=== PATIENT | female | born 1940 | race Caucasian/White ===

== ENCOUNTER → 2017-08-10 | Day surgery (SDC) | payer MEDICARE ==
[~2017-08-10] MED LIST: AMLO5TAB2 PO; CHLORHEXIDINE GLUCONATE 2 % 1 PACK (2 CLOTHS) TOPICAL PRN; DEXTROSE 5% IN WATE 1000ML INJ 1,000 ML IV SCH; LACTATED RINGER'S 1000 ML IV PRN; METOPROLOL TARTRATE 25 MG TAB PO PRN; NATU32.5 PO; POVIDONE IODINE 5% (ANTISEPSIS KIT) 4 APPLICATIONS EACH NARE PRN; SODIUM CHLORID 0.9% 500 ML IV PRN
[2017-08-10 06:55] VITALS: BP 160/80; PULSE 65; RESP 18; TEMP 98.1; O2SAT 90
--- NOTE | 2017-08-10 08:13 | GIPROC ---
[facility] [address] [facility]. [facility], [address] COLONOSCOPY PROCEDURE REPORT EXAM DATE: 08/10/2017 PATIENT NAME: Dominique Maloney MR #: [id number] BIRTHDATE: 1940 ENDOSCOPIST: Aviva Fuentes MD ORDER #: [id number] TRUCKING SUPERVISOR: Nilsa Barrios and Maile Mondragon STATUS: outpatient INDICATIONS: The patient is a 76 yr old female here for a colonoscopy due to Screening, Family history Colon Cancer. PROCEDURE PERFORMED: Total colonoscopy with polypectomy with biopsy forceps MEDICATIONS: See Anesthesia Record ESTIMATED BLOOD LOSS: None CONSENT: The patient understands the risks and benefits of the procedure and understands that these risks include, but are not limited to: sedation, allergic reaction, infection, perforation and/or bleeding. Alternative means of evaluation and treatment include, among others: physical exam, x-rays, and/or surgical intervention. The patient elects to proceed with this endoscopic procedure. DESCRIPTION OF PROCEDURE: checked for proper function. Hand hygiene and appropriate measures for infection prevention was taken. After the risks, benefits and alternatives of the procedure were thoroughly explained, Informed consent was verified, confirmed and timeout was successfully executed by the treatment team. A digital exam was performed. The endoscope was introduced through the anus and advanced to the cecum, which was identified by the appendiceal orifice, tri-radiate valve, and ileocecal valve. The prep quality was good. The instrument was then slowly withdrawn as the colon was fully examined. Other than mild pancolonic diverticulosis, there were no mucosal abnormalities noted with the cecum, or ascending colon. In the transverse colon a 2-3 mm polyp was removed with the biopsy forceps. There were no further polyps or masses in the descending colon, sigmoid, or rectum. The scope was then completely withdrawn from the patient and the procedure terminated. ADVERSE EVENTS: There were no complications. WITHDRAWL TIME: 6 minutes DEGREE OF DIFFICULTY: IMPRESSIONS: Normal Colon RECOMMENDATIONS: Home PATIENT CONDITION: Stable DISPOSITION: Home RECALL: 5 years Aviva Fuentes MD eSigned: Aviva Fuentes MD 08/10/2017 8:12 AM cc: Dr. Hines PATIENT NAME: Dominique Maloney MR#: [id number]
[2017-08-10 08:59] VITALS: BP 187/80; PULSE 57; RESP 18; TEMP 98.2; O2SAT 98
--- NOTE | 2017-08-10 09:17 | EKG ---
Date Performed: 08/10/2017 Time Performed: 06:43:16 PTAGE: 76 years EKG: SINUS BRADYCARDIA INCOMPLETE RIGHT BUNDLE BRANCH BLOCK POSSIBLE LATERAL MYOCARDIAL INFARCTI ON , OF INDETERMINATE AGE Nonspecific T wave changes ABNORMAL ECG NO PREVIOUS TRACING DOCTOR: Les Tovar Interpretating Date/Time 08/10/2017 09:17:07
== END | disposition home or self-care (01) ==
LOC: HSDC 05:55
PROVIDERS: ATTEND Colon & Rectal Surgery
DX: D12.3 Benign neoplasm of transverse colon (principal); K57.90 Diverticulosis of intestine, part unspecified, without perforation or abscess without bleeding; I10 Essential (primary) hypertension; Z80.0 Family history of malignant neoplasm of digestive organs
CPT/HCPCS: 00810; 45380; 88305; 93005; J7120

== ENCOUNTER 2018-01-16 10:51 | Inpatient (IN) | payer MEDICARE ==
[~2018-01-16] VITALS: Ht 154.9 cm; Wt 49.0 kg
[~2018-01-16 10:51] MED LIST changes: -CHLORHEXIDINE GLUCONATE 2 % 1 PACK (2 CLOTHS) TOPICAL PRN; -DEXTROSE 5% IN WATE 1000ML INJ 1,000 ML IV SCH; -LACTATED RINGER'S 1000 ML IV PRN; -METOPROLOL TARTRATE 25 MG TAB PO PRN; -POVIDONE IODINE 5% (ANTISEPSIS KIT) 4 APPLICATIONS EACH NARE PRN; -SODIUM CHLORID 0.9% 500 ML IV PRN
[2018-01-16 10:54] VITALS: BP 211/95; PULSE 69; RESP 18; TEMP 99.2; O2SAT 97
[2018-01-16] MEDS ORDERED: CLON0.5T PO (11:12)
[2018-01-16 11:36] VITALS: BP 213/104; PULSE 68; RESP 18; O2SAT 99
[2018-01-16 11:37] VITALS: BP 190/91; PULSE 60; RESP 15; O2SAT 99
--- NOTE | 2018-01-16 11:44 | PD ---
HPI Chief Complaint: Psychiatric Symptoms Time Seen by Provider: 11:00 Travel History International Travel<30 days: No Contact w/Intl Traveler<30days: No Traveled to known affect area: No History of Present Illness HPI 77-year-old female presents to the emergency department accompanied by her for psychological evaluation, and was apparently sent by her primary care provider. She has history of bipolar disorder and has been fighting episodes of whitney and depression for the past 10 years. She has been in her depressed state since October. She saw her psychiatrist, Dr. Ontiveros, on Tuesday and had follow-up with her primary care provider, Dr. Hines, today and was apparently told to report to the ER for psychological evaluation and recommendation of medications. She denies suicidal or homicidal ideations. Denies auditory or visual hallucinations. Denies illicit drug use. Reports social alcohol use. Denies tobacco use. Patient has no emergent medical complaints. Denies chest pain, shortness of breath, abdominal pain, nausea, vomiting, recent illnesses. The patient has been states she stopped taking her medications a few days ago, because she feels that her blood pressure medication and her thyroid medication is overdosing and poisoning her. Apparently she had an episode approximately 10 years ago where her thyroid medication was prescribed incorrectly and she says she was almost killed by that. She has not taken her blood pressure medication this morning. She takes amlodipine 5 mg. Onset and duration chronic. Symptoms are moderate to severe in severity. No known aggravating or relieving factors. Primary care provider is Dr. Hines. Psychiatrist is Dr. Ontiveros. No known allergies. History of hypertension hypothyroidism. Has no other medical complaints. No other modifying factors or associated signs and symptoms. PFSH Past Medical History Arthritis: Yes Bipolar Disorder: Yes Anxiety: Yes Depression: Yes (MANIC ) Cancer: No Cardiovascular Problems: No Diabetes: No Diminished Hearing: No Endocrine: No Genitourinary: No Hepatitis: No Hiatal Hernia: No Hypertension: Yes Immune Disorder: No Medical other: No Musculoskeletal: Yes (ARTHRITIS) Neurologic: No Psychiatric: No Reproductive: No Respiratory: No Immunizations Current: Yes Thyroid Disease: Yes Tetanus Vaccination: Unknown Influenza Vaccination: No ?: Not Past Surgical History AICD: No Appendectomy: Yes Eye Surgery: Yes (L CATARACT) Gynecologic Surgery: Yes (HYSTERECTOMY) Hysterectomy: Yes Joint Replacement: No Pacemaker: No Social History Alcohol Use: Yes Tobacco Use: Yes (QUIT ) Substance Use: No Allergies-Medications (Allergen,Severity, Reaction): Coded Allergies: No Known Allergies (Unverified , 01/16/18) Reported Meds & Prescriptions Reported Meds & Active Scripts Active Reported Clonazepam 0.5 Mg Tab 0.5 Mg PO BID Nature-Throid (Thyroid) 32.5 Mg Tab Unknown Dose PO DAILY Amlodipine (Amlodipine Besylate) 5 Mg Tab 5 Mg PO HS Review of Systems Except as stated in HPI: all other systems reviewed are Neg Physical Exam Narrative GENERAL: Well-nourished, well-developed feet patient, in no acute distress SKIN: Warm and dry. HEAD: Atraumatic. Normocephalic. EYES: Pupils equal and round. ENT: Mucosa pink and moist. NECK: Supple. Trachea midline. CARDIOVASCULAR: Regular rate and rhythm. No murmur appreciated. RESPIRATORY: No accessory muscle use. Clear to auscultation. Breath sounds equal bilaterally. GASTROINTESTINAL: Abdomen soft, non-tender, nondistended. Hepatic and splenic margins not palpable. Bowel sounds are active 4 quadrants. MUSCULOSKELETAL: No obvious deformities. No clubbing. No cyanosis. No edema. NEUROLOGICAL: Awake and alert. Oriented 3. No obvious cranial nerve deficits. Motor grossly within normal limits. Normal speech. Moves all extremities. 5/5 strength to all extremities. PSYCHIATRIC: No delusional thought processes. No hallucinations. Data Data Last Documented VS Vital Signs Date Time Temp Pulse Resp B/P (MAP) Pulse Ox O2 Delivery O2 Flow Rate FiO2 01/16/18 11:37 60 15 190/91 (124) 99 01/16/18 11:36 Room Air 01/16/18 10:54 99.2 Orders Orders Complete Blood Count With Diff (01/16/18 11:02) Comprehensive Metabolic Panel (01/16/18 11:02) Thyroid Stimulating Hormone (01/16/18 11:02) Urinalysis - C+S If Indicated (01/16/18 11:02) Psych Screen (01/16/18 11:02) Drug Screen, Random Urine (01/16/18 11:02) Alcohol (Ethanol) (01/16/18 11:02) Salicylates (Aspirin) (01/16/18 11:02) Tylenol (Acetaminophen) (01/16/18 11:02) Amlodipine (Norvasc) (01/16/18 11:45) [facility] Medical Decision Making Medical Screen Exam Complete: Yes Emergency Medical Condition: Yes Medical Record Reviewed: Yes Differential Diagnosis Encounter for psychological evaluation, bipolar disorder, depression Narrative Course Patient presents voluntarily. Physical examination and vital signs are essentially unremarkable. Patient has no medical complaints to report. Psych screen has been ordered. If the laboratory results are unremarkable, the patient will be medically cleared for psychiatric evaluation and disposition. Patient's blood pressure is elevated in the ER. Her and her both states she has "white coat syndrome." She has not taken her amlodipine this morning. She is asymptomatic. Amlodipine 5 mg ordered. Diagnosis Primary Impression: Encounter for psychological evaluation Condition: Stable Tiara Begum January 16, 2018 11:44
[2018-01-16] MEDS ORDERED: amLODIPine BESYLATE 5 MG TAB PO ONE (11:45)
[2018-01-16 12:21] LABS: BASOPHIL % 0.5 % (0.0-2.0); EOSINOPHIL # 0.1 TH/MM3 (0-0.4); EOSINOPHIL % 1.8 % (0.0-4.0); HEMATOCRIT 40.3 % (35.0-46.0); HEMOGLOBIN 14.1 GM/DL (11.6-15.3); LYMPH % 39.1 % (9.0-44.0); LYMPHOCYTE # 2.6 TH/MM3 (1.0-4.8); MEAN CELL VOLUME 91.2 FL (80.0-100.0); MEAN CORPUSCULAR HEMOGLOBIN 31.8 PG (27.0-34.0); MEAN CORPUSCULAR HGB CONC 34.9 % (32.0-36.0); MEAN PLATELET VOLUME 7.9 FL (7.0-11.0); MONO % 12.8 % (0.0-8.0); MONOCYTE # 0.8 TH/MM3 (0-0.9); NEUT % 45.8 % (16.0-70.0); PLATELET COUNT 321 TH/MM3 (150-450); RED BLOOD COUNT 4.42 MIL/MM3 (4.00-5.30); RED CELL DISTRIBUTION WIDTH 12.8 % (11.6-17.2); WHITE BLOOD COUNT 6.6 TH/MM3 (4.0-11.0)
[2018-01-16 12:31] LABS: BILIRUBIN, URINE NEG (NEG); BLOOD, URINE NEG (NEG); GLUCOSE,URINE NEG (NEG); KETONE, URINE NEG (NEG); MUCUS URINE FEW /lpf (OCC); NITRITE,URINE NEG (NEG); SQUAMOUS EPITHELIAL CELL URINE 2 /hpf (0-5); URINE COLOR LIGHT-YELLOW (YELLW/STRAW); URINE LEUKOCYTE ESTERASE NEG (NEG)
[2018-01-16 13:08] LABS: ALBUMIN 3.9 GM/DL (3.4-5.0); ALKALINE PHOSPHATASE 72 U/L (45-117); BLOOD UREA NITROGEN 14 MG/DL (7-18); CALCIUM 8.9 MG/DL (8.5-10.1); CREATININE 0.95 MG/DL (0.50-1.00); GLOMERULAR FILTRATION RATE 57 ML/MIN (>89); GLUCOSE,RANDOM 78 MG/DL (74-106); TOTAL PROTEIN 7.1 GM/DL (6.4-8.2)
[2018-01-16 13:09] LABS: ACETAMINOPHEN LESS THAN 2.0 MCG/ML (10.0-30.0); ALT (GPT) 23 U/L (10-53); AST (GOT) 24 U/L (15-37); BICARBONATE 25.6 MEQ/L (21.0-32.0); CHLORIDE 107 MEQ/L (98-107); SODIUM (NA) 140 MEQ/L (136-145); TOTAL BILIRUBIN ADULT 0.7 MG/DL (0.2-1.0)
[2018-01-16] MEDS ORDERED: MAGNESIUM HYDROXIDE SUSP 30 ML CUP PO PRN (16:00)
[2018-01-16] MEDS ORDERED: ACETAMINOPHEN 325 MG TAB PO PRN (16:00)
[2018-01-16] MEDS ORDERED: LORazepam 2 MG/ML VIAL IM PRN (16:00)
[2018-01-16] MEDS ORDERED: ALUMINUM/MAGNESIUM/SIMETH 30 ML CUP PO PRN (16:00)
[2018-01-16] MEDS ORDERED: LORazepam 0.5 MG TAB PO PRN (16:00)
--- NOTE | 2018-01-16 16:13 | PD ---
History of Present Illness Chief Complaint: Psychiatric Symptoms Time Seen by Provider: 15:00 Travel History International Travel<30 Days: No Contact w/Intl Traveler<30days: No Known affected area: No Legal Status Legal Status: Voluntary History of Present Illness: This is a 77-year-old , female who reports to the emergency department voluntarily. Her describes an ongoing, progressively worsening manic episode that started on approximately October 21 of this year. She is unknown to this facility previously for mental health issues. Reviewed electronic medical record, labs, discuss case with staff. Patient was evaluated in her room in the ED main. Patient is awake, alert, and oriented 4. Her speech is rapid, pressured, and at times disorganized. Her mood is anxious and her affect borders on irritable at times. She is fixated on an event that occurred many years ago where she was accidentally overdosed on her thyroid medication. Her reports that she has been rearranging the furniture and cleaning all night. She states that she is down to eating 1 meal a day. When asked if she had previously been inpatient she initially stated no but then later made the comment, "I have not been to the [facility] in years since leaving [place]". She denies suicidal ideation, homicidal ideation, auditory or visual hallucinations. However, when asked if she did ever previously tried to commit suicide she again initially stated no but later, " the only time I tried to kill myself was when I was on the horses urine pill". She goes on to say that this was hormonal replacement, obviously talking about Premarin. Her advises that she was to see a psychiatrist on Tuesday however, when they got to the appointment they were told that they would not be seeing her as they did not take her insurance. Today she followed up with her PCP Dr. Cain who upon assessing her advised the to bring her to this facility for stabilization. PFSH Past Medical History Arthritis: Yes Bipolar Disorder: Yes Anxiety: Yes Depression: Yes (MANIC ) Cancer: No Cardiovascular Problems: No Diabetes: No Diminished Hearing: No Endocrine: No Genitourinary: No Hepatitis: No Hiatal Hernia: No Hypertension: Yes Immune Disorder: No Medical other: No Musculoskeletal: Yes (ARTHRITIS) Neurologic: No Psychiatric: No Reproductive: No Respiratory: No Immunizations Current: Yes Thyroid Disease: Yes Tetanus Vaccination: Unknown Influenza Vaccination: No ?: Not Past Surgical History AICD: No Appendectomy: Yes Eye Surgery: Yes (L CATARACT) Gynecologic Surgery: Yes (HYSTERECTOMY) Hysterectomy: Yes Joint Replacement: No Pacemaker: No Psychiatric History Psychiatric History Initially denies, but later makes incriminating statement leading me to believe she may have been inpatient at sometime in the past. History of Inpatient Treatment: No (Unsure) Guns or firearms in home: No Social History Hx Alcohol Use: Yes Hx Tobacco Use: Yes (QUIT ) Hx Substance Use: No Allergies-Medications (Allergen,Severity, Reaction): Coded Allergies: No Known Allergies (Unverified , 01/16/18) Reported Meds & Prescriptions Reported Meds & Active Scripts Active Reported Clonazepam 0.5 Mg Tab 0.5 Mg PO BID Nature-Throid (Thyroid) 32.5 Mg Tab Unknown Dose PO DAILY Amlodipine (Amlodipine Besylate) 5 Mg Tab 5 Mg PO HS Mental Status Examination Appearance: Appropriate, Well dressed/well groomed Consciousness: Vigilant Orientation: x4 Motor Activity: Normal gait Speech: Pressured, Rapid Language: Adequate Fund of Knowledge: Adequate Attention and Concentration: Easily Distracted Memory: Unremarkable Mood: Manic Affect: Irritable, Anxious Thought Process & Associations: Loose associations, Disorganized, Tangential Thought Content: Preoccupations, Obsessions Hallucination Type: None (Denies) Delusion Type: None (Denies, although she may be slightly paranoid) Suicidal Ideation: No Suicidal Plan: No Suicidal Intention: No Homicidal Ideation: No Homicidal Plan: No Homicidal Intention: No Insight: Poor Judgment: Poor MDM Medical Decision Making Medical Record Reviewed: Yes Assessment/Plan This is a 77-year-old , female who presents to this facility voluntarily. Her reports that she has had a progressively worsening whitney since October 21. Upon examination today patient speech is pressured and rapid. She is tangential, preoccupied with her medical health, and at times disorganized in her thought process. Her mood is manic and her affect is anxious bordering on irritable at times. She denies being suicidal, homicidal, having auditory or visual hallucinations. The reports she has been cleaning the house all night and rearranging the furniture constantly. Due to the ongoing nature of her whitney and depressive cycles, per her , and the fact that she was sent by her primary care physician after being unable to get in to a psychiatrist, she will be admitted to the 2600 unit for further evaluation and treatment as needed. I consulted with Dr. Palacio who is on- call. Patient has signed consents voluntarily and she will be started on Depakote 250 mg twice a day. Request HC Surrog/Guard Advoc?: No Orders Orders Complete Blood Count With Diff (01/16/18 11:02) Comprehensive Metabolic Panel (01/16/18 11:02) Thyroid Stimulating Hormone (01/16/18 11:02) Urinalysis - C+S If Indicated (01/16/18 11:02) Psych Screen (01/16/18 11:02) Drug Screen, Random Urine (01/16/18 11:02) Alcohol (Ethanol) (01/16/18 11:02) Salicylates (Aspirin) (01/16/18 11:02) Tylenol (Acetaminophen) (01/16/18 11:02) Amlodipine (Norvasc) (01/16/18 11:45) Admit Order (Ed Use Only) (01/16/18 15:48) Admit To Inpatient Psych (01/16/18 ) Code Status (01/16/18 15:48) Vital Signs (Adult) FABIO.Q12H.E (01/16/18 15:48) Activity Oob Ad Jennifer (01/16/18 15:48) Level Of Observation (Psych) (01/16/18 15:48) Diet Regular Basic (01/16/18 Dinner) Lorazepam (Ativan) (01/16/18 16:00) Lorazepam Inj (Ativan Inj) (01/16/18 16:00) Acetaminophen (Tylenol) (01/16/18 16:00) Magnesium Hydroxide Liq (Milk Of Magnesi (01/16/18 16:00) Al-Mag Hy-Si 40-40-4 Mg/Ml Liq (Mag-Al P (01/16/18 16:00) Basic Metabolic Panel (Bmp) (01/17/18 06:00) Lipid Profile (01/17/18 06:00) Hemoglobin (Hgb) A1c (01/17/18 06:00) Electrocardiogram (01/17/18 ) Divalproex Dr (Depakote Dr) (01/16/18 21:00) Amlodipine (Norvasc) (01/16/18 21:00) Clonazepam (Klonopin) (01/16/18 21:00) Results Vital Signs Date Time Temp Pulse Resp B/P (MAP) Pulse Ox O2 Delivery O2 Flow Rate FiO2 01/16/18 11:37 60 15 190/91 (124) 99 01/16/18 11:36 68 18 213/104 (140) 99 Room Air 01/16/18 10:54 99.2 69 18 211/95 (133) 97 Laboratory Tests Test 01/16/18 00:00 01/16/18 11:30 01/16/18 11:35 Urine Opiates Screen NEG Urine Barbiturates Screen NEG Urine Amphetamines Screen NEG Urine Benzodiazepines Screen NEG Urine Cocaine Screen NEG Urine Cannabinoids Screen NEG Urine Color LIGHT-YELLOW Urine Turbidity CLEAR Urine pH 6.0 Urine Specific [place] 1.006 Urine Protein NEG Urine Glucose (UA) NEG Urine Ketones NEG Urine Occult Blood NEG Urine Nitrite NEG Urine Bilirubin NEG Urine Urobilinogen LESS THAN 2.0 Urine Leukocyte Esterase NEG Urine RBC LESS THAN 1 Urine WBC LESS THAN 1 Urine Squamous Epithelial Cells 2 Urine Mucus FEW Microscopic Urinalysis Comment CULT NOT INDICATED White Blood Count 6.6 Red Blood Count 4.42 Hemoglobin 14.1 Hematocrit 40.3 Mean Corpuscular Volume 91.2 Mean Corpuscular Hemoglobin 31.8 Mean Corpuscular Hemoglobin Concent 34.9 Red Cell Distribution Width 12.8 Platelet Count 321 Mean Platelet Volume 7.9 Neutrophils (%) (Auto) 45.8 Lymphocytes (%) (Auto) 39.1 Monocytes (%) (Auto) 12.8 Eosinophils (%) (Auto) 1.8 Basophils (%) (Auto) 0.5 Neutrophils # (Auto) 3.0 Lymphocytes # (Auto) 2.6 Monocytes # (Auto) 0.8 Eosinophils # (Auto) 0.1 Basophils # (Auto) 0.0 CBC Comment DIFF FINAL Differential Comment Blood Urea Nitrogen 14 Creatinine 0.95 Random Glucose 78 Total Protein 7.1 Albumin 3.9 Calcium Level 8.9 Alkaline Phosphatase 72 Aspartate Amino Transf (AST/SGOT) 24 Alanine Aminotransferase (ALT/SGPT) 23 Total Bilirubin 0.7 Sodium Level 140 Potassium Level 4.0 Chloride Level 107 Carbon Dioxide Level 25.6 Anion Gap 7 Estimat Glomerular Filtration Rate 57 Thyroid Stimulating Hormone 3rd Gen 0.487 Salicylates Level LESS THAN 1.7 Acetaminophen Level LESS THAN 2.0 Ethyl Alcohol Level LESS THAN 3 Diagnosis Primary Impression: Bipolar 1 disorder with moderate whitney Admitting Information Admitting Physician Requests: Admit Condition: Stable Urvashi Caputo January 16, 2018 16:13
[2018-01-16 16:49] VITALS: BP 182/70; PULSE 69; RESP 19; O2SAT 100
[2018-01-16 19:00] VITALS: BP 186/89; PULSE 98; RESP 20; O2SAT 98
[2018-01-16] MEDS: clonazePAM 0.5 MG TAB PO SCH (20:00)
[2018-01-16 21:00] VITALS: BP 155/69
[2018-01-16] MEDS: amLODIPine BESYLATE 5 MG TAB PO SCH (22:03)
[2018-01-16] MEDS: DIVALPROEX SODIUM DELAYED RELEASE 250 MG TAB PO SCH (22:04)
[2018-01-17 04:00] VITALS: BP 166/77; PULSE 60; RESP 17; TEMP 97.9; O2SAT 98
[2018-01-17 07:31] LABS: BICARBONATE 29.6 MEQ/L (21.0-32.0); BLOOD UREA NITROGEN 18 MG/DL (7-18); CHLORIDE 104 MEQ/L (98-107); CHOLESTEROL 204 MG/DL (120-200); CREATININE 0.87 MG/DL (0.50-1.00); GLOMERULAR FILTRATION RATE 63 ML/MIN (>89); GLUCOSE,RANDOM 88 MG/DL (74-106); SODIUM (NA) 140 MEQ/L (136-145)
[2018-01-17 07:34] LABS: CHOLESTEROL/ HDL RATIO 3.09 RATIO; LDL CHOLESTEROL 122 MG/DL (0-99); TRIGLYCERIDES 82 MG/DL (42-150)
[2018-01-17] MEDS: clonazePAM 0.5 MG TAB PO SCH ×2 (09:11→20:48)
[2018-01-17] MEDS: DIVALPROEX SODIUM DELAYED RELEASE 250 MG TAB PO SCH ×2 (09:11→20:48)
[2018-01-17] MEDS ORDERED: hydrOXYzine HCL 50 MG TAB PO PRN (11:45)
--- NOTE | 2018-01-17 12:01 | HHI.HP ---
Provisional Diagnosis Admission Date January 16, 2018 at 15:52 [place]. Bipolar disorder current episode mixed severe without psychosis Certification of Person's Competence To Provide Express and Informed Consent I have personally examined Dominique Maloney , a person being served at [facility] on, January 17, 2018 11:46. Express and informed consent means consent voluntarily given in writing, by a competent person, after sufficient explanation and disclosure of the subject matter involved to enable the person to make a knowing and willful decision without any element of force, fraud, deceit, duress, or other form of constraint or coercion. This person is 18 years of age or older, is not now known to be incompetent to consent to treatment with a guardian advocate, and does not have a health care surrogate or proxy currently making medical treatment decisions. I have found this person to be one of the following: [xxx] Competent to provide express and informed consent, as defined above, for voluntary admission to this facility and is competent to provide express and informed consent for treatment. He/she has the consistent capacity to make well reasoned, willful, and knowing decisions concerning his or her medical or mental health treatment. The person fully and consistently understands the purpose of the admission for examination/placement and is fully capable of personally exercising all rights [place] Incompetent to provide express and informed consent to voluntary admission, and this is incompetent to provide express and informed consent to treatment. The person must be transferred to involuntary status and a petition for a guardian advocate filed with the Circuit Court. [] Refusing to provide express and informed consent to voluntary admission but is competent to provide express and informed consent for treatment. The person must be discharged or transferred to involuntary status. Form shall be completed within 24 hours of a person's arrival at the receiving facility and filed in the clinical record of each person: 1. Admitted on a voluntary basis 2. Permitted to provide express and informed consent to his/her own treatment 3. Allowed to transfer from involuntary to voluntary status 4. Prior to permitting a person to consent to his or her own treatment after having been previously found incompetent to consent to treatment. History of Present Illness Capacity: Has Capacity HPI Patient is a 77-year-old white female comes in here voluntarily with her in the history of increased manic type behaviors over the past 2-3 months. Patient seen screen in the ED urine toxicology negative blood alcohol level negative. It appears patient had been getting more anxious disturbed labile irritable isolating poor sleep habits. At the present time patient sitting in her bed in her room nurse Cookie present throughout session. Patient is quite intense she is a thin slight slender white female with a fairly strong Adri[place] accent. She has rapid pressured speech she is disorganized she is markedly tangential and circumstantial. There is quite difficult to keep her on task with responses. There is much focusing and perseveration on her thyroid dysfunction how she describes her manic type behaviors to her abnormal thyroid functioning that is being treated now by a compound bolt header. She is also quite perseverative about her gynecological issues. She has had total hysterectomy with bilateral oophorectomy she has been having difficulties also with regulation of her movements related to this. She describes her bipolar type behaviors to the dysfunction and thyroid and gynecological functioning. She is vague about alcohol abuse but appears to have an occasional glass of wine with a frequency is difficult to determine. She denies other drug use. She denies any other prior psychiatric hospitalizations. Though it appears she has been on all the medications perhaps by the primary care physician's. This is her second marriage she has been for about 13 years she has 3 children by a prior marriage. She denies any prior physical or sexual abuse. Denies mental illness in family of origin. At this time patient meets criteria for further psychiatric assessment. We will start her on Depakote 250 mg twice daily for now will continue her Klonopin 0.5 twice daily. She continues quite labile is quite tearful at various times during the assessment. We will attempt to reach patient's to get further information and try to arrange a family meeting of the next couple of days. We will also have hospitalist consult with us with this lady Review of Systems Constitutional: COMPLAINS OF: Weight loss Endocrine: DENIES: Abnorml menstrual pattern, Heat/cold intolerance, Polydipsia , Polyuria, Polyphagia Eyes: DENIES: Blurred vision, Diplopia, Eye inflammation, Eye pain, Vision loss , Photosensitivity, Double Vision Ears, nose, mouth, throat: DENIES: Tinnitus, Hearing loss, Vertigo, Nasal discharge, Oral lesions, Throat pain, Hoarseness, Ear Pain, Running Nose, Epistaxis, Sinus Pain, Toothache, Odynophagia Respiratory: DENIES: Apneas, Cough, Snoring, Wheezing, Hemoptysis, Sputum production, Shortness of breath Cardiovascular: DENIES: Chest pain, Palpitations, Syncope, Dyspnea on Exertion , PND, Lower Extremity Edema, Orthopnea, Claudication Gastrointestinal: DENIES: Abdominal pain, Black stools, Bloody stools, Constipation, Diarrhea, Nausea, Vomiting, Difficulty Swallowing, Anorexia Genitourinary: DENIES: Abnormal vaginal bleeding, Dysmenorrhea, Dyspareunia, Sexual dysfunction, Urinary frequency, Urinary incontinence, Urgency, Hematuria , Dysuria, Nocturia, Vaginal discharge Musculoskeletal: DENIES: Joint pain, Muscle aches, Stiffness, Joint Swelling, Back pain, Neck pain Integumentary: DENIES: Abnormal pigmentation, Pruritus, Rash, Nail changes, Breast masses, Breast skin changes, Nipple discharge Hematologic/lymphatic: DENIES: Bruising, Lymphadenopathy Immunologic/allergic: DENIES: Eczema, Urticaria Neurologic: DENIES: Abnormal gait, Headache, Localized weakness, Paresthesias, Seizures, Speech Problems, Tremor, Poor Balance Psychiatric: COMPLAINS OF: Anxiety, Mood changes, Depression Past Psych History Psychological trauma history Patient denies physical or sexual abuse Violence risk - others (6 mos) Low Violence risk - self (6 mos) Low to medium Substance Abuse History Drugs/Alcohol past 12 months Patient states occasional glass of wine Past Family Social History Coded Allergies: No Known Allergies (Unverified , 01/16/18) Reported Medications Clonazepam (Clonazepam) 0.5 Mg Tab, 0.5 MG PO BID, #60 TAB 0 Refills 01/16/18 Thyroid (Nature-Throid) 32.5 Mg Tab, PO DAILY for Thyroid Supplement, #30 TAB 0 Refills 08/09/17 Amlodipine (Amlodipine) 5 Mg Tab, 5 MG PO HS for Blood Pressure Management, #30 TAB 0 Refills 08/09/17 Current Medications Medications (Trade) Dose Ordered Sig/Sd Route Start Time Stop Time Status Last Admin (Tylenol) 650 mg Q4H PRN PO 01/16/18 16:00 (Milk Of Magnesia Liq) 30 ml DAILY PRN PO 01/16/18 16:00 (Mag-Al Plus Susp Liq) 30 ml Q6H PRN PO 01/16/18 16:00 (Depakote Dr) 250 mg Q12HR PO 01/16/18 21:00 5/8/18 09:11 (Norvasc) 5 mg HS PO 01/16/18 21:00 01/16/18 22:03 (KlonoPIN) 0.5 mg BID PO 01/16/18 21:00 01/17/18 09:11 Family Psych History Patient denies Social History Patient lives with her second Patient's Strengths (min. 2) Patient verbal able access healthcare appears to have supportive Physical Exam Patient medically cleared ED at the present time patient sitting quietly in her bed in her room she is in no acute distress though she is tearful and labile, no respiratory distress, no complaints of abdominal pain. Patient does move all 4 extremities without difficulty Vital Signs Vital Signs Date Time Temp Pulse Resp B/P (MAP) Pulse Ox O2 Delivery O2 Flow Rate FiO2 01/17/18 04:00 97.9 60 17 166/77 (106) 98 01/16/18 11:36 Room Air I/O 01/17/18 01/17/18 01/18/18 08:00 16:00 00:00 Intake Total 480 ml Balance 480 ml Lab Results Test 01/17/18 06:26 Blood Urea Nitrogen 18 MG/DL Creatinine 0.87 MG/DL Random Glucose 88 MG/DL Calcium Level 9.0 MG/DL Sodium Level 140 MEQ/L Potassium Level 3.7 MEQ/L Chloride Level 104 MEQ/L Carbon Dioxide Level 29.6 MEQ/L Anion Gap 6 MEQ/L Estimat Glomerular Filtration Rate 63 ML/MIN Triglycerides Level 82 MG/DL Cholesterol Level 204 MG/DL LDL Cholesterol 122 MG/DL HDL Cholesterol 66.0 MG/DL Cholesterol/HDL Ratio 3.09 RATIO Mental Status Examination Appearance: Appropriate, Well dressed/well groomed Consciousness: Alert, Vigilant Orientation: x4 Motor Activity: Normal gait Speech: Pressured, Rapid Language: Adequate Fund of Knowledge: Adequate Attention and Concentration: Easily Distracted Memory: Unremarkable Mood: Sad, Manic Affect: Other (Decreased range and intensity) Thought Process & Associations: Loose associations, Disorganized, Tangential Thought Content: Preoccupations, Obsessions Hallucination Type: None (Denies) Delusion Type: None (Denies, although she may be slightly paranoid) Suicidal Ideation: No Suicidal Plan: No Suicidal Intention: No Homicidal Ideation: No Homicidal Plan: No Homicidal Intention: No Insight: Poor Judgment: Poor Assessment & Plan Problem List: (1) Bipolar affective disorder, current episode mixed, without psychotic features ICD Codes: F31.60 - Bipolar disorder, current episode mixed, unspecified Assessment & Plan Estimated LOS: 5-7 days at this time patient meets criteria for continued inpatient psychiatric hospitalization will continue her Depakote as ordered we will continue medications for the med reconciliation. We will have hospitalist consult was also. We will attempt to reach patient's to get further information concerning this lady Discharge Planning Return to Request HC Surrog/Guard Advoc?: Cirilo Argueta MD January 17, 2018 12:01
[2018-01-17] MEDS ORDERED: PATIENT OWN MEDICATION EXTERNAL SCH (12:15)
--- NOTE | 2018-01-17 14:26 | PD.CONS ---
HPI Service [facility] Hospitalists Consult Requested By Dr. Tenorio Reason for Consult Medical management Primary Care Physician Richi Hines M.D. Diagnoses: (1) Hypertension (2) Hypothyroidism (3) Bipolar affective disorder, current episode mixed, without psychotic features History of Present Illness 77-year-old female admitted to the psychiatric unit for bipolar disorder with whitney. Hospitalist service consulted for medical management. Medical history reviewed with the patient. She has a history of hypertension and hypothyroidism. She reports hypothyroidism has been difficult to controlled and required dose adjustments. Her TSH is currently in the normal range. She denies any symptoms of hypothyroidism. Patient reports her blood pressure has been well controlled with low-dose amlodipine at night. She denies any episodes of chest pain or dyspnea on exertion. Review of Systems Constitutional: DENIES: Fatigue Endocrine: DENIES: Heat/cold intolerance Respiratory: DENIES: Shortness of breath Cardiovascular: DENIES: Chest pain, Dyspnea on Exertion Except as stated in HPI: all other systems reviewed are Neg Past Family Social History Allergies: Coded Allergies: No Known Allergies (Unverified , 01/16/18) Past Medical History Bipolar disorder Hypothyroidism Hypertension Past Surgical History Hysterectomy Appendectomy Reported Medications Reported Meds & Active Scripts Active Reported Clonazepam 0.5 Mg Tab 0.5 Mg PO BID Nature-Throid (Thyroid) 32.5 Mg Tab Unknown Dose PO DAILY Amlodipine (Amlodipine Besylate) 5 Mg Tab 5 Mg PO HS Family History Reviewed and is noncontributory. Social History Patient quit using tobacco in her 40s. She admits to occasional alcohol. Physical Exam Vital Signs Vital Signs Date Time Temp Pulse Resp B/P (MAP) Pulse Ox O2 Delivery O2 Flow Rate FiO2 01/17/18 04:00 97.9 60 17 166/77 (106) 98 01/16/18 21:00 155/69 (97) 01/16/18 19:00 98 20 186/89 (121) 98 01/16/18 17:05 100 01/16/18 16:49 69 19 182/70 (107) 100 Physical Exam GENERAL: This is a well-nourished, well-developed patient, in no apparent distress. CARDIOVASCULAR: Normal rate and regular rhythm without murmurs, gallops, or rubs. RESPIRATORY: Good respiratory efforts. Breath sounds equal and clear to auscultation bilaterally. GASTROINTESTINAL: Abdomen soft, non-tender, non-distended. Normal active bowel sounds MUSCULOSKELETAL: Extremities without cyanosis, or edema. NEURO: Alert & Oriented x4 to person, place, time, situation. Moves all ext x4 PSYCH: Talkative, racing chain of thoughts. Laboratory Laboratory Tests Test 01/17/18 06:26 Blood Urea Nitrogen 18 Creatinine 0.87 Random Glucose 88 Calcium Level 9.0 Sodium Level 140 Potassium Level 3.7 Chloride Level 104 Carbon Dioxide Level 29.6 Anion Gap 6 Estimat Glomerular Filtration Rate 63 Triglycerides Level 82 Cholesterol Level 204 LDL Cholesterol 122 HDL Cholesterol 66.0 Cholesterol/HDL Ratio 3.09 Result Diagram: 01/16/18 1135 01/17/18 0626 Assessment and Plan Problem List: (1) Bipolar affective disorder, current episode mixed, without psychotic features ICD Code: F31.60 - Bipolar disorder, current episode mixed, unspecified Plan: Management per psychiatry. (2) Hypothyroidism ICD Code: E03.9 - Hypothyroidism, unspecified Plan: TSH within normal range. Advise continuing same dose of thyroid medication. Follow-up with PCP (3) Hypertension ICD Code: I10 - Essential (primary) hypertension Plan: Continue amlodipine 5 mg at bedtime per her usual schedule. Add clonidine as needed for SBP greater than 180 Assessment and Plan Thank you for allowing me to participate in the care of Ms. Maloney. Patient appear medically stable. We will sign off. Call or consult with questions. Landen Potts MD January 17, 2018 14:26
[2018-01-17] MEDS ORDERED: cloNIDine HCL 0.1 MG TAB PO PRN (14:30)
[2018-01-17 16:12] LABS: HEMOGLOBIN A1C 5.3 % (4.3-6.0)
--- NOTE | 2018-01-17 17:08 | EKG ---
Date Performed: 01/17/2018 Time Performed: 13:54:46 PTAGE: 77 years EKG: Sinus rhythm POSSIBLE LATERAL MYOCARDIAL INFARCTION , OF INDETERMINATE AGE ABNORMAL ECG PREVIOUS TRACING : 08/10/2017 06.43 DOCTOR: Sam Baugh Interpretating Date/Time 01/17/2018 17:06:39
[2018-01-17 18:12] VITALS: BP 115/75; PULSE 82; RESP 18; TEMP 98.5; O2SAT 99
[2018-01-17] MEDS: amLODIPine BESYLATE 5 MG TAB PO SCH (20:48)
[2018-01-18 06:15] VITALS: BP 169/71; PULSE 60; RESP 17; TEMP 97.9; O2SAT 97
[2018-01-18] MEDS: clonazePAM 0.5 MG TAB PO SCH (08:05)
[2018-01-18] MEDS: DIVALPROEX SODIUM DELAYED RELEASE 250 MG TAB PO SCH (08:05)
[2018-01-18] MEDS ORDERED: DIVA250T PO (11:59)
--- NOTE | 2018-01-18 12:09 | HHI.DS ---
Psychiatry Discharge Summary Inpatient Psychiatric care?: Yes Advance Directive: No Reason Not Provided: not available Mental Health AdvanceDirective: No Health Care Proxy: No Admission Admission Date January 16, 2018 at 15:52 Admission Diagnosis: (1) Bipolar affective disorder, current episode mixed, without psychotic features ICD Code: F31.60 - Bipolar disorder, current episode mixed, unspecified Brief History Patient is a 77-year-old white female comes in here voluntarily with her in the history of increased manic type behaviors over the past 2-3 months. Patient seen screen in the ED urine toxicology negative blood alcohol level negative. It appears patient had been getting more anxious disturbed labile irritable isolating poor sleep habits. At the present time patient sitting in her bed in her room nurse Cookie present throughout session. Patient is quite intense she is a thin slight slender white female with a fairly strong [place] accent. She has rapid pressured speech she is disorganized she is markedly tangential and circumstantial. There is quite difficult to keep her on task with responses. There is much focusing and perseveration on her thyroid dysfunction how she describes her manic type behaviors to her abnormal thyroid functioning that is being treated now by a compound chemistry quality control technician. She is also quite perseverative about her gynecological issues. She has had total hysterectomy with bilateral oophorectomy she has been having difficulties also with regulation of her movements related to this. She describes her bipolar type behaviors to the dysfunction and thyroid and gynecological functioning. She is vague about alcohol abuse but appears to have an occasional glass of wine with a frequency is difficult to determine. She denies other drug use. She denies any other prior psychiatric hospitalizations. Though it appears she has been on all the medications perhaps by the primary care physician's. This is her second marriage she has been for about 13 years she has 3 children by a prior marriage. She denies any prior physical or sexual abuse. Denies mental illness in family of origin. At this time patient meets criteria for further psychiatric assessment. We will start her on Depakote 250 mg twice daily for now will continue her Klonopin 0.5 twice daily. She continues quite labile is quite tearful at various times during the assessment. We will attempt to reach patient's to get further information and try to arrange a family meeting of the next couple of days. We will also have hospitalist consult with us with this lady Tobacco Use In Past 30 Days: No Tobacco Past 30 Days Alcohol Use: Never Hospital Course Patient's hospital course was uneventful she did have a good night last night slept well. He is tolerating the Depakote without problems, patient denies suicidality and homicidality voices or visions. States she is talkative family they wish her to return home also. Patient is willing to continue her Depakote the follow-up with mental health services in the community refer to advanced nursing services Results Blood Pressure 169 / 71 Vital Signs Date Time Temp Pulse Resp B/P (MAP) Pulse Ox O2 Delivery O2 Flow Rate FiO2 01/18/18 06:15 97.9 60 17 169/71 (103) 97 01/16/18 11:36 Room Air Laboratory Tests Test 01/16/18 00:00 01/16/18 11:30 01/16/18 11:35 01/17/18 06:26 Urine Mucus FEW /lpf (OCC) Monocytes (%) (Auto) 12.8 % (0.0-8.0) Estimat Glomerular Filtration Rate 57 ML/MIN (>89) 63 ML/MIN (>89) Salicylates Level LESS THAN 1.7 MG/DL Acetaminophen Level LESS THAN 2.0 MCG/ML Cholesterol Level 204 MG/DL (120-200) LDL Cholesterol 122 MG/DL (0-99) HDL Cholesterol 66.0 MG/DL (40.0-60.0) Laboratory Results Test 01/17/18 06:26 Cholesterol Level 204 MG/DL (120-200) HDL Cholesterol 66.0 MG/DL (40.0-60.0) Hemoglobin A1c 5.3 % (4.3-6.0) LDL Cholesterol 122 MG/DL (0-99) Triglycerides Level 82 MG/DL (42-150) Summary of Procedures None done Pending results at discharge: No Medications # of Antipsychotic meds at D/C: 0 Approp Antipsych med options 1 - Minimum of three failed multiple trials of monotherapy. 2 - Documented plan to taper to monotherapy due to previous use of multiple meds OR cross-taper in progress at D/C. 3 - Documentation of augmentation of Clozapine. 4 - Justification other than those listed in allowable values 1-3, document here : Discharge Discharge Date: January 18, 2018 Discharge Diagnosis: (1) Bipolar affective disorder, current episode mixed, without psychotic features Diagnosis: Principal ICD Code: F31.60 - Bipolar disorder, current episode mixed, unspecified Pt Condition on Discharge: Stable Discharge Disposition: Discharge Home Discharge Instructions Diet Instructions: As Tolerated, No Restrictions Activities you can perform: Regular-No Restrictions Scheduled Appointment: Advanced Practice Nursing Appointment Date: January 25, 2018 Appointment Time: 10:00 AM Discharge Time > 30 minutes Mental Status Examination Appearance: Appropriate, Well dressed/well groomed Consciousness: Alert, Vigilant Orientation: x4 Motor Activity: Normal gait Speech: Pressured, Rapid Language: Adequate Fund of Knowledge: Adequate Attention and Concentration: Easily Distracted Memory: Unremarkable Mood: Sad, Manic Affect: Other (Decreased range and intensity) Thought Process & Associations: Loose associations, Disorganized, Tangential Thought Content: Preoccupations, Obsessions Hallucination Type: None (Denies) Delusion Type: None (Denies, although she may be slightly paranoid) Suicidal Ideation: No Suicidal Plan: No Suicidal Intention: No Homicidal Ideation: No Homicidal Plan: No Homicidal Intention: No Insight: Poor Judgment: Poor Discharge/Advance Care Plan Health Problems: (1) Bipolar affective disorder, current episode mixed, without psychotic features Goals to promote your health * To prevent worsening of your condition and complications * To maintain your health at the optimal level Directions to meet your goals Take your medications as prescribed Follow your dietary instruction Follow activity as directed Keep your appointments as scheduled Take your immunizations and boosters as scheduled If your symptoms worsen call your PCP, if no PCP go to Urgent Care Center or Emergency Room For / questions related to your inpatient stay or results of tests pending at discharge, please contact Dr. Cirilo Tenorio at Smoking is Dangerous to Your Health. Avoid second hand smoking Cirilo Tenorio MD January 18, 2018 12:09
== END 2018-01-18 13:25 | disposition home or self-care (01) | DRG 885 ==
LOC: NEPD 10:51 → NEDA 15:52 → H260 17:18
PROVIDERS: ADMIT Psychiatry & Neurology Psychiatry; ATTEND Psychiatry & Neurology Psychiatry
DX: F31.60 Bipolar disorder, current episode mixed, unspecified (principal); I10 Essential (primary) hypertension; E03.9 Hypothyroidism, unspecified; Z90.710 Acquired absence of both cervix and uterus; Z87.891 Personal history of nicotine dependence
CPT/HCPCS: 80048; 80053; 80061; 80307; 81001; 83036; 84443; 85025; 93005